=== PATIENT | female | born 1930 | race African-American/Black ===

== ENCOUNTER 2017-01-14 23:35 | Inpatient (IN) | payer MEDICARE, OTHER ==
[~2017-01-14] VITALS: Ht 170.2 cm; Wt 68.9 kg
[2017-01-15] VITALS (11 sets, daily range): BP systolic 127–158; BP diastolic 68–94
[2017-01-15 00:39] LABS: KETONES,URINE 1+ (NEGATIVE); LEUKOCYTE ESTERASE ,URINE 3+ (NEGATIVE); NITRITE,URINE NEGATIVE (NEGATIVE); PH,URINE 5 (4.5-8.0); PROTEIN,URINE 3+ (NEGATIVE); UROBILINOGEN,URINE 4 MG/DL (0.0-1.0)
[2017-01-15 00:49] LABS: APPEARANCE,URINE SLIGHTLY CLOUDY
[2017-01-15 00:51] LABS: AMORPHOUS SEDIMENT,UR MODERATE /LPF; BACTERIA,URINE MODERATE /HPF; HYALINE CASTS, URINE 0-2 /LPF; SQUAMOUS EPITHELIAL CELL,UR MANY /LPF (NONE/OCC); WBC,URINE 20-30 /HPF (0 - 2)
[2017-01-15 01:00] LABS: MEAN CORPUSCULAR HEMOGLOBIN 28.8 PG (27.0-31.0); MEAN CORPUSCULAR HGB CONC 31.6 G/DL (32.0-36.0); MEAN CORPUSCULAR VOLUME 91 FL (80-99); MEAN PLATELET VOLUME 7.5 FL (6.5-10.1); PLATELET COUNT 247 K/UL (150-450); RED BLOOD COUNT 5.36 M/UL (4.20-5.40); RED CELL DISTRIBUTION WIDTH 13.6 % (11.6-14.8)
[2017-01-15] MEDS ORDERED: cefTRIAXone 1 GM in NS 55 ML IVPB ONE (01:00)
[2017-01-15 01:19] LABS: ALANINE AMINOTRANSFERASE 17 U/L (3-33); ALBUMIN/GLOBULIN RATIO 0.9 (1.0-2.7); ANION GAP 16 (5-15); ASPARTATE AMINO TRANSFERASE 28 U/L (5-40); CALCIUM 9.6 mg/dL (8.6-10.2); CARBON DIOXIDE 26 mEQ/L (20-30); CHLORIDE 100 mEQ/L (98-107); CREATININE 1.1 mg/dL (0.5-0.9); HEMOLYSIS 1; LIPASE 16 U/L (< 60); POTASSIUM 4.4 mEQ/L (3.4-4.9); SODIUM 142 mEQ/L (135-145)
--- NOTE | 2017-01-15 01:55 | Emergency Room Report ---
History of Present Illness General Chief Complaint: Abdominal Pain Source: Patient, Medical Record Present Illness HPI Is an 86-year-old female with history diabetes. She presents with chief complaint of lower abdominal pain for last 4 days. No fever or chills. Took Motrin without much relief. Denies any dysuria frequency. No nausea or vomiting or diarrhea. No fever. Pain is 6/10. Crampy in nature Allergies: Coded Allergies: No Known Allergies (Unverified , 01/15/17) Patient History Past Medical History: see triage record, old chart reviewed, DM Past Surgical History: , other Pertinent Family History: none Social History: Denies: smoking Last Menstrual Period: post Now: No : 0 Para: 0 Immunizations: other Reviewed Nursing Documentation: PMH: Agreed, PSxH: Agreed Nursing Documentation-PMH Hx Hypertension: Yes Hx Diabetes: Yes Review of Systems Eye: Denies: blurred vision, eye pain ENT: Denies: ear pain, nose congestion, throat swelling Respiratory: Denies: cough, shortness of breath Cardiovascular: Denies: chest pain, palpitations Gastrointestinal: Reports: abdominal pain, Denies: diarrhea, nausea, vomiting Musculoskeletal: Denies: back pain, joint pain Skin: Denies: rash Neurological: Denies: headache, numbness Endocrine: Denies: increased thirst, increased urine Hematologic/Lymphatic: Denies: easy bruising All Other Systems: negative except mentioned in HPI Physical Exam Vital Signs Date Time Temp Pulse Resp B/P Pulse Ox O2 Delivery O2 Flow Rate FiO2 01/14/17 23:40 97.7 89 18 166/93 97 Room Air vitals with hypertension Sp02 EP Interpretation: reviewed, normal General Appearance: well appearing, no apparent distress, alert Head: normocephalic, atraumatic Eyes: bilateral eye EOMI, bilateral eye PERRL ENT: hearing grossly normal, normal pharynx Neck: full range of motion, supple, no meningismus Respiratory: chest non-tender, lungs clear, normal breath sounds Cardiovascular #1: regular rate, rhythm, no murmur Gastrointestinal: normal bowel sounds, no mass, no organomegaly, no bruit, non- distended, tenderness - Diffuse in lower quadrants Musculoskeletal: back normal, gait/station normal, normal range of motion Neurologic: alert, oriented x3 Psychiatric: mood/affect normal Skin: warm/dry Procedures Critical Care Time Critical Care Time Critical care is mandated in this patient who presented with abdominal pain and bowel perforation. Patient require my urgent intervention to attenuate the risks of metabolic collapse which may lead to cardiovascular collapse and . Critical care time is 35 minutes excluding any reportable procedure. Critical care time included evaluation, multiple reevaluation, looking at old charts, interpreting laboratory and diagnostic data, discussing case with patient and family and consultants, and charting. Medical Decision Making Diagnostic Impression: Primary Impression: Small bowel perforation Additional Impressions: UTI (urinary tract infection) Qualified Codes: N30.00 - Acute cystitis without hematuria Hyperglycemia due to type 1 diabetes mellitus Proteinuria Qualified Codes: R80.9 - Proteinuria, unspecified ER Course Patient present with abdominal pain for 4 days. Labs showed a mild leukocytosis with a white count of 12,000. Urine showed infection. Her CT scan showed a small perforation. Most likely secondary to perforation or small bowel. Patient received antibiotics. Kept NPO. IV fluid given. I discussed the case with Dr. Bernardo who will admit. Dr. Reagan group paged for surgical consultation. because of the perforated bowel, patient is unstable for transfer. Lab Results Impression labs unremarkable Rhythm Strip Diag. Results Rhythm Strip Time: 03:50 EP Interpretation: yes Rate: 94 Rhythm: NSR CT/MRI/US Diagnostic Results CT/MRI/US Diagnostic Results : Imaging Test Ordered: CT abdomen and pelvis Impression Read by radiologist. Free air. 3.2 x 3.9 cm collection of free air with fluid and gas in the pelvis on the left adjacent to multiple small bowel loops. Last Vital Signs Date Time Temp Pulse Resp B/P Pulse Ox O2 Delivery O2 Flow Rate FiO2 01/15/17 01:42 80 14 131/64 95 Room Air 01/15/17 00:15 97.7 Status: improved Disposition: ADMITTED INPATIENT Condition: Serious Referrals: NON PHYSICIAN (PCP) KATARINA FRAUSTO M.D. Jan 15, 2017 01:55
[2017-01-15] MEDS ORDERED: Piperacillin/Tazobactam 3.375 GM in NS 110 ML IVPB ONE (03:45)
[2017-01-15] MEDS ORDERED: Zosyn 3.375gm inj ONE (03:49)
[2017-01-15] MEDS ORDERED: Potassium Chloride 10 MEQ in NS 1000ml 1,000 ML IV SCH (04:00)
[2017-01-15] MEDS ORDERED: AMLODIPINE-BEN1 EACH ORAL (04:18)
[2017-01-15] MEDS ORDERED: REPAGLINIDE1 MG PO (04:18)
[2017-01-15] MEDS ORDERED: LOSARTAN POTASS50 MG ORAL (04:18)
[2017-01-15] MEDS ORDERED: ATORVASTATIN CA40 MG ORAL (04:18)
[2017-01-15] MEDS ORDERED: Morphine Sulfate 4mg/ml Inj IVP PRN (06:45)
--- NOTE | 2017-01-15 09:15 | Diagnostic Imaging Report ---
Indications: Abdominal pain Technique: Continuous helical CT imaging of the abdomen and pelvis was performed with automatic exposure control following administration of nonionic IV contrast only, on a Siemens sensation [address] scanner. Axial and coronal images were reconstructed at 5 mm slice thickness. No oral contrast was administered per requesting physician's order, despite no contraindications listed. CTDI volume(s): 18 mGy Total DLP: 188 mGy-cm Findings: Comparison: None Free air and fluid are present in the peritoneal cavity in mesentery. 4.5 cm loculated gas and fluid collection is present in the left lower quadrant mesentery. No retroperitoneal free air is present. This resides adjacent to both multiple variably dilated small bowel loops and the sigmoid colon. The latter demonstrates multiple diverticula. Associated mural thickening not excludable. Multiple loops of small bowel in lower abdomen and pelvis are dilated with air-fluid levels, without obvious discrete transition point. Appendix and remainder of colon unremarkable. Small hiatal hernia is present. Stomach and duodenum otherwise unremarkable. Circumscribed low-attenuation foci of varying sizes are present in the liver in both cortices. The larger appear to represent cysts. Smaller cannot be adequately characterized other than they are similar in appearance. Prominent arterial mural calcifications are present. Flow-limiting stenoses involving either or both renal arteries excludable. Broad mouth umbilical hernia contains only fat and a small amount of free air. Uterus absent. Neither ovary identified. Remainder visualized abdominopelvic anatomy demonstrates no other obvious acute abnormality. Irregular pleural-based linear and patchy opacities are present in both lung bases. Multilevel disc space narrowing with marginal osteophyte formation, vacuum phenomenon, facet hypertrophy and sclerosis throughout lumbar, lower thoracic spine. IMPRESSION: Findings compatible with acute/recent perforation of hollow viscus. Precise site indeterminate, though may have arisen from either or a sigmoid colon diverticulum or small bowel in the left lower quadrant. Associated 4.5 cm loculated gas and fluid collection in left lower quadrant may represent abscess. Small bowel dilation--favor ileus over obstruction Hepatic and bilateral renal cortical low-attenuation foci, most likely not definitely all cysts Arteriosclerosis Previous hysterectomy Pulmonary bibasal subsegmental atelectasis versus scarring. Superimposed patchy opacities may be represent atelectasis, edema, inflammation, or chronic lung disease Degenerative spondylosis Umbilical hernia This correlates with [facility] preliminary report.
--- NOTE | 2017-01-15 10:17 | Consultation ---
History of Present Illness General Date patient seen: Jan 15, 2017 Chief Complaint: Abdominal Pain Present Illness HPI 86 year old female with past medical history as noted below presented to the ED complaining of worsening abdominal pain. As per patient, she has been having intermittent vague abdominal pain for 2 months now. Two weeks ago pain began to worsen and 3 days ago became acutely worse. Pain described as cramping lower abdominal pain that is 6-8/10. Denies nausea or emesis. No radiation of pain. No fever or chills. Decided to finally come in last night as pain did not improve on its own. In ED had CT scan which demonstrated air and fluid collection in left lower abdomen consistent with intraabdominal abscess likely from perforated viscus (likely sigmoid). Surgery called to evaluate. Allergies: Coded Allergies: No Known Allergies (Unverified , 01/15/17) Medication History Scheduled Amlodipine Besylate/Benazepril* (Amlodipine-Benazepril 10-20 Mg*), 1 CAP ORAL DAILY, (Reported) Atorvastatin Calcium* (Atorvastatin Calcium*), 40 MG ORAL BEDTIME, (Reported) Losartan Potassium* (Losartan Potassium*), 50 MG ORAL DAILY, (Reported) Repaglinide (Repaglinide), 1 MG PO TID, (Reported) Patient History History Provided By: Patient Healthcare decision maker Resuscitation status Full Code Advanced Directive on File Past Medical/Surgical History Past Medical/Surgical History: (1) Proteinuria (2) UTI (urinary tract infection) (3) Hyperglycemia due to type 1 diabetes mellitus (4) Small bowel perforation Review of Systems All Other Systems: negative except mentioned in HPI Physical Exam General Appearance: no apparent distress, alert Lines, tubes and drains: peripheral HEENT: mucous membranes moist, PERRL Neck: normal inspection Respiratory/Chest: normal breath sounds, no respiratory distress, no accessory muscle use Cardiovascular/Chest: normal peripheral pulses, normal rate Abdomen: other - soft, non distended, tender on palpation with voluntary guarding. no rebound. no focal peritonitis. Neurologic: alert, oriented x 3, responsive Last 24 Hour Vital Signs Date Time Temp Pulse Resp B/P Pulse Ox O2 Delivery O2 Flow Rate FiO2 01/15/17 08:21 98.7 86 18 152/71 96 Room Air 01/15/17 07:40 97.6 85 15 154/91 98 Room Air 01/15/17 07:03 97.6 85 15 154/91 98 Room Air 01/15/17 06:53 97.6 89 15 154/91 98 Room Air 01/15/17 05:49 97.7 87 16 158/94 97 Room Air 01/15/17 03:30 97.6 60 12 158/79 98 Room Air 01/15/17 01:30 97.6 79 12 130/68 98 Room Air 01/15/17 00:15 97.7 16 132/75 99 Room Air 01/14/17 23:40 97.7 89 18 166/93 97 Room Air Intake and Output 01/14/17 01/15/17 19:00 07:00 Intake Total 55 ml Balance 55 ml Intake IV Total 55 ml # Voids 1 Laboratory Tests Test 01/14/17 23:50 01/15/17 00:15 Urine Color Yellow Urine Appearance Slightly cloudy Urine pH 5 (4.5-8.0) Urine Specific [place] 1.025 (1.005-1.035) Urine Protein 3+ (NEGATIVE) H Urine Glucose (UA) Negative (NEGATIVE) Urine Ketones 1+ (NEGATIVE) H Urine Occult Blood 3+ (NEGATIVE) H Urine Nitrite Negative (NEGATIVE) Urine Bilirubin Negative (NEGATIVE) Urine Urobilinogen 4 MG/DL (0.0-1.0) H Urine Leukocyte Esterase 3+ (NEGATIVE) H Urine RBC 2-4 /HPF (0 - 2) H Urine WBC 20-30 /HPF (0 - 2) H Urine Squamous Epithelial Cells Many /LPF (NONE/OCC) H Urine Amorphous Sediment Moderate /LPF (NONE) H Urine Bacteria Moderate /HPF (NONE) H Urine Hyaline Casts 0-2 /LPF (NONE) H Urine Coarse Granular Casts 2-4 /LPF (NONE) H White Blood Count 12.0 K/UL (4.8-10.8) H Red Blood Count 5.36 M/UL (4.20-5.40) Hemoglobin 15.5 G/DL (12.0-16.0) Hematocrit 49.0 % (37.0-47.0) H Mean Corpuscular Volume 91 FL (80-99) Mean Corpuscular Hemoglobin 28.8 PG (27.0-31.0) Mean Corpuscular Hemoglobin Concent 31.6 G/DL (32.0-36.0) L Red Cell Distribution Width 13.6 % (11.6-14.8) Platelet Count 247 K/UL (150-450) Mean Platelet Volume 7.5 FL (6.5-10.1) Neutrophils (%) (Auto) % (45.0-75.0) Lymphocytes (%) (Auto) % (20.0-45.0) Monocytes (%) (Auto) % (1.0-10.0) Eosinophils (%) (Auto) % (0.0-3.0) Basophils (%) (Auto) % (0.0-2.0) Prothrombin Time 10.0 SEC (9.30-11.50) Prothromb Time International Ratio 1.0 (0.9-1.1) Activated Partial Thromboplast Time 29 SEC (23-33) Sodium Level 142 mEQ/L (135-145) Potassium Level 4.4 mEQ/L (3.4-4.9) Chloride Level 100 mEQ/L (98-107) Carbon Dioxide Level 26 mEQ/L (20-30) Anion Gap 16 (5-15) H Blood Urea Nitrogen 27 mg/dL (7-23) H Creatinine 1.1 mg/dL (0.5-0.9) H Estimat Glomerular Filtration Rate mL/min (>60) Glucose Level 256 mg/dL (74-106) H Calcium Level 9.6 mg/dL (8.6-10.2) Total Bilirubin 0.9 mg/dL (0.0-1.2) Aspartate Amino Transf (AST/SGOT) 28 U/L (5-40) Alanine Aminotransferase (ALT/SGPT) 17 U/L (3-33) Alkaline Phosphatase 94 U/L (35-104) Total Protein 8.0 g/dL (6.6-8.7) Albumin 3.8 g/dL (3.5-5.2) Globulin 4.2 g/dL Albumin/Globulin Ratio 0.9 (1.0-2.7) L Lipase 16 U/L (< 60) Height (Feet): 5 Height (Inches): 7.00 Weight (Pounds): 152 Medications Current Medications Medications (Trade) Dose Ordered Sig/Tosin Route PRN Reason Start Time Stop Time Status Last Admin Dose Admin Ondansetron HCl (Zofran) 4 mg Q6H PRN IVP Nausea & Vomiting 01/15/17 04:15 02/14/17 04:14 Sodium Chloride (Sodium Chloride 1000ml bag) 1,000 ml @ 125 mls/hr Q8H IV 01/15/17 04:15 02/14/17 04:14 Assessment/Plan Status: stable Assessment/Plan 86 year old female with likely perforated sigmoid diverticulitis as consistent with history and CT findings. Afebrile, HD stable, leukocytosis, exam as above. Patient is currently stable. Will discuss possible radiological drainage of intra abdominal abscess. IV Abx NPO If does not improve with above, will likely require exploration will follow Kiet Eddy Jan 15, 2017 10:17
[2017-01-15] MEDS ORDERED: Morphine Sulfate 2mg/ml Inj IVP PRN (12:00)
--- NOTE | 2017-01-15 12:05 | History & Physical ---
History and Physical History & Physicial dict sigmoid perforation w abscess DM HTN HPLD abx drainage SSI IVF RICHIE PASCUAL Jan 15, 2017 12:05
[2017-01-15] MEDS ORDERED: Lidocaine 1% Plain 30 ml INJ PRN (13:30)
[2017-01-15] MEDS: Piperacillin/Tazobactam 3.375 GM in D5W 110 ML IVPB SCH (15:03)
--- NOTE | 2017-01-15 15:16 | Diagnostic Imaging Report ---
Indications: Abdominal pain, perforated sigmoid colon diverticulitis with left lower quadrant abscess formation Technique: Procedure, indications, risks, alternatives were explained to the patient, who understands and gives written consent to proceed. With the patient supine position, continuous helical CT imaging of the pelvis was performed with automatic exposure control on a Siemens Sensation Cardiac [address] scanner. Axial localizing images reconstructed at 3 mm slice thickness. Left lower quadrant anterior abdominal wall skin overlying abscess marked, sterilely prepped and draped in usual fashion. Skin, subcutaneous and deep soft tissues to peripheral margin of abscess infiltrated extensively with 1% lidocaine and sodium bicarbonate. A small dermatotomy made, through which an 8.5 Danish locking pigtail drainage catheter was advanced via trocar technique into the abscess. Trocar removed. Pigtail locked. Abscess maximally aspirated through catheter. Catheter secured the skin with adhesive dressing and attached to gravity drainage bag. Followup CT imaging performed. Patient tolerated procedure well without immediate complications and was returned to her room in stable condition. Aspirate sent to laboratory for culture and sensitivity. CTDI volume(s): 17x4, 18x3 mGy Total DLP: 1358 mGy-cm Findings: Comparison: CT abdomen pelvis 01/15/2017 at 0033 Final imaging demonstrates central aspect of the drainage catheter coiled within the region of previous abscess. Aspiration yields 25 cc of malodorous pus. Abscess cavity resolved post aspiration. IMPRESSION: CT-guided percutaneous drainage catheter placement into and aspiration of left lower quadrant diverticular abscess, culture results pending
--- NOTE | 2017-01-15 16:00 | History and Physical Report ---
DATE OF ADMISSION: 01/15/2017 CHIEF COMPLAINT: The patient is an 86-year-old woman, who came to the emergency department because of abdominal pain. HISTORY OF PRESENT ILLNESS: The patient has had abdominal pain for several weeks. It became worse in the last few days. She came to the emergency department. She complains of some nausea and poor appetite, but no vomiting or diarrhea. She has no hematemesis or melena. She had no high fever or chills. She was evaluated and found to have free air in the left lower quadrant consistent with perforated viscus. Admission was arranged. PAST MEDICAL HISTORY: Hypertension, diabetes, and hyperlipidemia. She had a hysterectomy in the past. She has no history of cancer. She does not smoke or drink and does not use drugs. She has no other major health problems. REVIEW OF SYSTEMS: Otherwise unremarkable. ALLERGIES: None. MEDICATIONS: Atorvastatin, amlodipine, losartan, and repaglinide. PHYSICAL EXAMINATION: GENERAL: The patient is alert and responds appropriately. She is well developed and well nourished. VITAL SIGNS: Stable. The blood pressure has been somewhat elevated. There is no high fever. HEENT: Head is normocephalic. NECK: No jugular venous distention. CHEST: Clear. CARDIAC: Rhythm is regular. ABDOMEN: Soft. There is some tenderness diffusely. There is no rebound. Bowel sounds are hypoactive. There are no peritoneal signs. EXTREMITIES: No clubbing, cyanosis, or edema. LABORATORY AND DIAGNOSTIC DATA: Laboratory studies and imaging are reviewed. IMPRESSION: 1. Perforated viscus, probably sigmoid colon. 2. Diabetes. 3. Hypertension. 4. Hyperlipidemia. PLAN: The patient will be given intravenous fluids, antibiotics, and pain medication. Surgery has seen the patient, recommended conservative management with percutaneous drainage. She may require surgical intervention. John Bernardo M.D. DR: ANA JOB#: [id number] CC: Patricia Haji M.D.; Fax#: [phone] Bernardo M.D. ; Fax#: [phone]
[2017-01-15] MEDS: NS w/KCl 20mEq 1,000 ML IV SCH (16:28)
[2017-01-15] MEDS: NovoLOG Insulin Flexpen SUBQ SCH ×2 (16:30→20:48)
[2017-01-16] VITALS (7 sets, daily range): BP systolic 121–135; BP diastolic 70–79
[2017-01-16] MEDS: NS w/KCl 20mEq 1,000 ML IV SCH ×2 (00:30→08:15)
[2017-01-16] MEDS: Piperacillin/Tazobactam 3.375 GM in D5W 110 ML IVPB SCH ×2 (03:01→14:12)
[2017-01-16 05:45] LABS: BASOPHILS % (AUTO) 0.7 % (0.0-2.0); EOSINOPHILS % (AUTO) 0.2 % (0.0-3.0); LYMPHOCYTES % (AUTO) 22.6 % (20.0-45.0); MEAN CORPUSCULAR HEMOGLOBIN 28.3 PG (27.0-31.0); MEAN CORPUSCULAR HGB CONC 30.8 G/DL (32.0-36.0); MEAN CORPUSCULAR VOLUME 92 FL (80-99); MEAN PLATELET VOLUME 6.4 FL (6.5-10.1); MONOCYTES % (AUTO) 14.6 % (1.0-10.0); NEUTROPHILS % (AUTO) 61.9 % (45.0-75.0); PLATELET COUNT 245 K/UL (150-450); RED BLOOD COUNT 4.85 M/UL (4.20-5.40); RED CELL DISTRIBUTION WIDTH 13.8 % (11.6-14.8); WHITE BLOOD COUNT 5.2 K/UL (4.8-10.8)
[2017-01-16 06:14] LABS: ALANINE AMINOTRANSFERASE 17 U/L (3-33); ALBUMIN/GLOBULIN RATIO 0.8 (1.0-2.7); ANION GAP 14 (5-15); ASPARTATE AMINO TRANSFERASE 22 U/L (5-40); CALCIUM 8.7 mg/dL (8.6-10.2); CARBON DIOXIDE 24 mEQ/L (20-30); CHLORIDE 109 mEQ/L (98-107); CREATININE 0.8 mg/dL (0.5-0.9); HEMOLYSIS 5; SODIUM 147 mEQ/L (135-145); TOTAL PROTEIN 6.6 g/dL (6.6-8.7)
[2017-01-16] MEDS: NovoLOG Insulin Flexpen SUBQ SCH ×4 (06:30→21:00)
[2017-01-16 06:42] LABS: HEMOGLOBIN A1C 6.1 % (< 6.0)
[2017-01-16 08:12] LABS: CHOLESTEROL 140 mg/dL (< 200); CHOLESTEROL/HDL RATIO 2.4 (3.3-4.4); LDL CHOLESTEROL (CALC.) 66 mg/dL (60-99)
--- NOTE | 2017-01-16 12:48 | General Progress Note ---
Assessment/Plan Assessment/Plan 1. Perforated viscus, probably sigmoid colon. 2. Diabetes. 3. Hypertension. 4. Hyperlipidemia. IR drained 25 cc pus drain in LLQ no fevers c/s pending cont NPO, abx adjust IVF for high Na Subjective Constitutional: Denies: fever Gastrointestinal/Abdominal: Denies: abdominal pain Allergies: Coded Allergies: No Known Allergies (Unverified , 01/15/17) Objective Last 24 Hour Vital Signs Date Time Temp Pulse Resp B/P Pulse Ox O2 Delivery O2 Flow Rate FiO2 01/16/17 12:17 97.5 61 20 132/79 95 Room Air 01/16/17 08:04 97.7 61 20 133/76 96 Room Air 01/16/17 04:00 98.7 64 18 121/72 93 Room Air 01/16/17 00:00 98.9 64 18 130/73 96 Room Air 01/15/17 20:00 97.6 73 18 137/80 96 Room Air 01/15/17 16:00 97.9 80 18 140/71 96 Room Air 01/15/17 15:03 146/94 Intake and Output 01/15/17 01/16/17 19:00 07:00 Intake Total 125 ml 1957.5 ml Output Total 0 ml Balance 125 ml 1957.5 ml Intake IV Total 125 ml 1957.5 ml Output Other 0 ml # Voids 2 # Bowel Movements 1 Laboratory Tests 01/16/17 05:00: White Blood Count 5.2#, Red Blood Count 4.85, Hemoglobin 13.7, Hematocrit 44.6, Mean Corpuscular Volume 92, Mean Corpuscular Hemoglobin 28.3, Mean Corpuscular Hemoglobin Concent 30.8L, Red Cell Distribution Width 13.8, Platelet Count 245, Mean Platelet Volume 6.4L, Neutrophils (%) (Auto) 61.9, Lymphocytes (%) (Auto) 22.6, Monocytes (%) (Auto) 14.6H, Eosinophils (%) (Auto) 0.2, Basophils (%) ( Auto) 0.7, Sodium Level 147H, Potassium Level 4.0, Chloride Level 109H, Carbon Dioxide Level 24, Anion Gap 14, Blood Urea Nitrogen 23, Creatinine 0.8, Estimat Glomerular Filtration Rate , Glucose Level 106#, Hemoglobin A1c 6.1H, Calcium Level 8.7, Total Bilirubin 0.9, Aspartate Amino Transf (AST/SGOT) 22, Alanine Aminotransferase (ALT/SGPT) 17, Alkaline Phosphatase 69, Total Protein 6.6, Albumin 3.1L, Globulin 3.5, Albumin/Globulin Ratio 0.8L, Triglycerides Level 81 , Cholesterol Level 140, LDL Cholesterol 66, HDL Cholesterol 58, Cholesterol/ HDL Ratio 2.4L Height (Feet): 5 Height (Inches): 7.00 Weight (Pounds): 152 General Appearance: alert Neck: supple Cardiovascular: normal rate Respiratory/Chest: lungs clear Abdomen: tender, other - drain LLQ RICHIE PASCUAL Jan 16, 2017 12:48
[2017-01-16] MEDS ORDERED: NS w/KCl 20mEq 1,000 ML IV SCH (13:30)
[2017-01-16] MEDS: D5 1/2NS w/KCl 20mEq 1,000 ML IV SCH (14:12)
--- NOTE | 2017-01-16 16:33 | Cardiology Report ---
APPROVED REPORT EKG Measurement Heart [id number] CT [id number] [id number] Normal sinus rhythm Normal ECG
--- NOTE | 2017-01-16 18:04 | General Progress Note ---
Progress Note Progress Note Afebrile, much less pain, no N/V..No BM yet, minimal flatus. Scanty drainage, flushed line plugged with old pus and a few ccs aspirated. Abdomen:soft, minimal LLQ tenderness, no mass, WBC: 5,200 Hg 13.7 Hct 44.6 Lytes OK. C&S: Gm stai: G+ and Gm - cocci and rods, Impression: S/P percutaneous drainage of sigmoid diverticular abscess. Pt non-toxic Plan: Continue drainage, bowel rest, begin liquids tomorrow if all EDILMA VILLEDA Jan 16, 2017 18:04
[2017-01-17] MEDS: D5 1/2NS w/KCl 20mEq 1,000 ML IV SCH ×3 (00:17→20:00)
[2017-01-17] MEDS: Piperacillin/Tazobactam 3.375 GM in D5W 110 ML IVPB SCH ×2 (03:21→15:44)
[2017-01-17 03:48] VITALS: BP 129/63
[2017-01-17] MEDS: NovoLOG Insulin Flexpen SUBQ SCH ×4 (06:30→21:00)
[2017-01-17 07:00] LABS: BASOPHILS % (AUTO) 2.6 % (0.0-2.0); EOSINOPHILS % (AUTO) 0.9 % (0.0-3.0); LYMPHOCYTES % (AUTO) 23.2 % (20.0-45.0); MEAN CORPUSCULAR HEMOGLOBIN 28.9 PG (27.0-31.0); MEAN CORPUSCULAR HGB CONC 32.1 G/DL (32.0-36.0); MEAN CORPUSCULAR VOLUME 90 FL (80-99); MEAN PLATELET VOLUME 6.6 FL (6.5-10.1); MONOCYTES % (AUTO) 12.3 % (1.0-10.0); PLATELET COUNT 255 K/UL (150-450); RED BLOOD COUNT 4.61 M/UL (4.20-5.40); RED CELL DISTRIBUTION WIDTH 13.2 % (11.6-14.8); WHITE BLOOD COUNT 6.6 K/UL (4.8-10.8)
[2017-01-17 08:00] VITALS: BP 142/74
--- NOTE | 2017-01-17 11:38 | General Surgery Progress Note ---
General Surgery-Progress Note Subjective Symptoms: improved, passing flatus Additional Comments no acute events. pain improved. no n/v/f/c. drain functional Objective Last 24 Hour Vital Signs Date Time Temp Pulse Resp B/P Pulse Ox O2 Delivery O2 Flow Rate FiO2 01/17/17 08:00 98.2 51 19 142/74 98 Room Air 01/17/17 04:30 52 01/17/17 03:48 97.3 47 18 129/63 96 Room Air 01/16/17 23:54 97.3 49 18 133/72 100 Room Air 01/16/17 20:00 97.7 54 18 135/71 100 Room Air 01/16/17 15:58 97.7 60 20 132/70 97 Room Air 01/16/17 12:17 97.5 61 20 132/79 95 Room Air I&O Intake and Output 01/16/17 01/17/17 19:00 07:00 Intake Total 710.0 ml 1227.5 ml Output Total 2602 ml 250 ml Balance -1892.0 ml 977.5 ml Intake IV Total 710.0 ml 1227.5 ml Output Urine Total 2600 ml 240 ml Other 2 ml 10 ml # Voids 3 1 Wound: clean, dry Drains: hemovac - minimal output Cardiovascular: RSR Respiratory: clear Abdomen: soft, flat, non-tender, present bowel sounds Extremities: no tenderness Laboratory Tests Test 01/17/17 04:55 White Blood Count 6.6 K/UL (4.8-10.8) Red Blood Count 4.61 M/UL (4.20-5.40) Hemoglobin 13.3 G/DL (12.0-16.0) Hematocrit 41.6 % (37.0-47.0) Mean Corpuscular Volume 90 FL (80-99) Mean Corpuscular Hemoglobin 28.9 PG (27.0-31.0) Mean Corpuscular Hemoglobin Concent 32.1 G/DL (32.0-36.0) Red Cell Distribution Width 13.2 % (11.6-14.8) Platelet Count 255 K/UL (150-450) Mean Platelet Volume 6.6 FL (6.5-10.1) Neutrophils (%) (Auto) 61.0 % (45.0-75.0) Lymphocytes (%) (Auto) 23.2 % (20.0-45.0) Monocytes (%) (Auto) 12.3 % (1.0-10.0) H Eosinophils (%) (Auto) 0.9 % (0.0-3.0) Basophils (%) (Auto) 2.6 % (0.0-2.0) H Plan Problems: (1) Perforated diverticulum of large intestine Assessment & Plan: 86F likely perforated sigmoid diverticulitis with pericolonic abscess s/p IR drainage. doing much better. Afebrile, HD stable, exam improved, labs improved. Fortunately seems to have improved with drainage and may not need surgery during this episode. Can start clear liquid diet today --> if worsening abdominal pain make NPO again Ambulate and OOB Drain care and management will follow Kiet Eddy Jan 17, 2017 11:38
[2017-01-17 11:48] VITALS: BP 130/67
[2017-01-17 16:11] VITALS: BP 138/83
--- NOTE | 2017-01-17 17:10 | General Progress Note ---
Assessment/Plan Assessment/Plan 1. Perforated sigmoid diverticulitis with pericolonic abscess s/p IR drainage. 2. Diabetes. 3. Hypertension. 4. Hyperlipidemia. drained minimal output no fevers c/s pending clears, abx monitor labs Subjective Constitutional: Denies: fever Gastrointestinal/Abdominal: Denies: abdominal pain, diarrhea Allergies: Coded Allergies: No Known Allergies (Unverified , 01/15/17) Objective Last 24 Hour Vital Signs Date Time Temp Pulse Resp B/P Pulse Ox O2 Delivery O2 Flow Rate FiO2 01/17/17 16:11 98.1 61 20 138/83 95 Room Air 01/17/17 11:48 97.6 50 20 130/67 98 Room Air 01/17/17 08:00 98.2 51 19 142/74 98 Room Air 01/17/17 04:30 52 01/17/17 03:48 97.3 47 18 129/63 96 Room Air 01/16/17 23:54 97.3 49 18 133/72 100 Room Air 01/16/17 20:00 97.7 54 18 135/71 100 Room Air Intake and Output 01/16/17 01/17/17 19:00 07:00 Intake Total 710.0 ml 1227.5 ml Output Total 2602 ml 250 ml Balance -1892.0 ml 977.5 ml IV Total 710.0 ml 1227.5 ml Output Urine Total 2600 ml 240 ml Other 2 ml 10 ml # Voids 3 1 Laboratory Tests 01/17/17 04:55: White Blood Count 6.6, Red Blood Count 4.61, Hemoglobin 13.3, Hematocrit 41.6, Mean Corpuscular Volume 90, Mean Corpuscular Hemoglobin 28.9, Mean Corpuscular Hemoglobin Concent 32.1, Red Cell Distribution Width 13.2, Platelet Count 255, Mean Platelet Volume 6.6, Neutrophils (%) (Auto) 61.0, Lymphocytes (%) (Auto) 23.2, Monocytes (%) (Auto) 12.3H, Eosinophils (%) (Auto) 0.9, Basophils (%) ( Auto) 2.6H Height (Feet): 5 Height (Inches): 7.00 Weight (Pounds): 152 General Appearance: no apparent distress Abdomen: non tender, soft, no organomegaly, no mass, other - drain RICHIE ROESNBAUM Jan 17, 2017 17:10
[2017-01-17 20:00] VITALS: BP 130/77
[2017-01-18 00:19] VITALS: BP 120/67
[2017-01-18] MEDS: Piperacillin/Tazobactam 3.375 GM in D5W 110 ML IVPB SCH (02:36)
[2017-01-18 04:00] VITALS: BP 120/70
[2017-01-18] MEDS: D5 1/2NS w/KCl 20mEq 1,000 ML IV SCH ×2 (06:00→17:16)
[2017-01-18] MEDS: NovoLOG Insulin Flexpen SUBQ SCH ×4 (06:30→21:00)
[2017-01-18 06:34] LABS: BASOPHILS % (AUTO) 0.8 % (0.0-2.0); EOSINOPHILS % (AUTO) 0.6 % (0.0-3.0); LYMPHOCYTES % (AUTO) 18.8 % (20.0-45.0); MEAN CORPUSCULAR HEMOGLOBIN 28.6 PG (27.0-31.0); MEAN CORPUSCULAR HGB CONC 31.4 G/DL (32.0-36.0); MEAN CORPUSCULAR VOLUME 91 FL (80-99); MEAN PLATELET VOLUME 6.5 FL (6.5-10.1); MONOCYTES % (AUTO) 11.9 % (1.0-10.0); NEUTROPHILS % (AUTO) 67.8 % (45.0-75.0); PLATELET COUNT 279 K/UL (150-450); RED BLOOD COUNT 4.74 M/UL (4.20-5.40); RED CELL DISTRIBUTION WIDTH 13.3 % (11.6-14.8); WHITE BLOOD COUNT 6.8 K/UL (4.8-10.8)
[2017-01-18 07:07] LABS: ANION GAP 13 (5-15); CALCIUM 8.5 mg/dL (8.6-10.2); CARBON DIOXIDE 25 mEQ/L (20-30); CHLORIDE 102 mEQ/L (98-107); CREATININE 0.8 mg/dL (0.5-0.9); HEMOLYSIS 9; POTASSIUM 3.6 mEQ/L (3.4-4.9); SODIUM 140 mEQ/L (135-145)
[2017-01-18 08:00] VITALS: BP 123/70
[2017-01-18 12:00] VITALS: BP 130/65
--- NOTE | 2017-01-18 13:07 | General Progress Note ---
Assessment/Plan Assessment/Plan 1. Perforated sigmoid diverticulitis with pericolonic abscess s/p IR drainage. 2. Diabetes. 3. Hypertension. 4. Hyperlipidemia. drained minimal output no fevers c/s e coli, 2nd GNR; adjust abx per sensi clears, advance if OK w surgery monitor labs Subjective ROS Limited/Unobtainable: Yes Constitutional: Denies: fever Gastrointestinal/Abdominal: Denies: abdominal pain Allergies: Coded Allergies: No Known Allergies (Unverified , 01/15/17) Objective Last 24 Hour Vital Signs Date Time Temp Pulse Resp B/P Pulse Ox O2 Delivery O2 Flow Rate FiO2 01/18/17 12:00 97.8 51 18 130/65 98 Room Air 01/18/17 08:00 97.7 53 18 123/70 95 Room Air 01/18/17 04:00 97.0 52 18 120/70 97 Room Air 01/18/17 00:19 97.5 60 17 120/67 96 Room Air 01/17/17 20:00 97.2 65 18 130/77 95 Room Air 01/17/17 16:11 98.1 61 20 138/83 95 Room Air Intake and Output 01/17/17 01/18/17 19:00 07:00 Intake Total 1682.5 ml 60 ml Output Total 1250 ml 15 ml Balance 432.5 ml 45 ml Intake Oral 800 ml 60 ml IV Total 882.5 ml Output Urine Total 1250 ml Other 0 ml 15 ml # Voids 2 # Bowel Movements 2 1 Laboratory Tests 01/18/17 05:00: White Blood Count 6.8, Red Blood Count 4.74, Hemoglobin 13.6, Hematocrit 43.2, Mean Corpuscular Volume 91, Mean Corpuscular Hemoglobin 28.6, Mean Corpuscular Hemoglobin Concent 31.4L, Red Cell Distribution Width 13.3, Platelet Count 279, Mean Platelet Volume 6.5, Neutrophils (%) (Auto) 67.8, Lymphocytes (%) (Auto) 18.8L, Monocytes (%) (Auto) 11.9H, Eosinophils (%) (Auto) 0.6, Basophils (%) ( Auto) 0.8, Sodium Level 140, Potassium Level 3.6, Chloride Level 102, Carbon Dioxide Level 25, Anion Gap 13, Blood Urea Nitrogen 11, Creatinine 0.8, Estimat Glomerular Filtration Rate , Glucose Level 104, Calcium Level 8.5L Height (Feet): 5 Height (Inches): 7.00 Weight (Pounds): 152 General Appearance: no apparent distress Abdomen: non tender, soft, no organomegaly, no mass, other - drain RICHIE PASCUAL Jan 18, 2017 13:07
[2017-01-18 16:00] VITALS: BP 128/68
[2017-01-18] MEDS: cefTRIAXone 2 GM in D5W 110 ML IVPB SCH (17:17)
--- NOTE | 2017-01-18 19:18 | General Progress Note ---
Progress Note Progress Note Surgery: doing well. no issues. no n/v/f/c. labs okay. no drain output. minimal pain around drain tube insertion site. abdominal exam benign had normal BM today advance diet as tolerated can d/c on oral abx from surgical standpoint will remove drain day of discharge. Kiet Eddy Jan 18, 2017 19:18
[2017-01-18 20:00] VITALS: BP 147/76
[2017-01-19 00:05] VITALS: BP 140/77
[2017-01-19] MEDS: D5 1/2NS w/KCl 20mEq 1,000 ML IV SCH ×3 (03:20→21:54)
[2017-01-19 04:00] VITALS: BP 141/69
[2017-01-19] MEDS: NovoLOG Insulin Flexpen SUBQ SCH ×4 (06:23→21:00)
[2017-01-19 07:17] LABS: BASOPHILS % (AUTO) 0.9 % (0.0-2.0); EOSINOPHILS % (AUTO) 0.4 % (0.0-3.0); LYMPHOCYTES % (AUTO) 18.6 % (20.0-45.0); MEAN CORPUSCULAR HEMOGLOBIN 29.1 PG (27.0-31.0); MEAN CORPUSCULAR HGB CONC 31.9 G/DL (32.0-36.0); MEAN CORPUSCULAR VOLUME 91 FL (80-99); MEAN PLATELET VOLUME 6.3 FL (6.5-10.1); MONOCYTES % (AUTO) 10.4 % (1.0-10.0); NEUTROPHILS % (AUTO) 69.8 % (45.0-75.0); PLATELET COUNT 309 K/UL (150-450); RED BLOOD COUNT 4.47 M/UL (4.20-5.40); RED CELL DISTRIBUTION WIDTH 13.3 % (11.6-14.8)
[2017-01-19 07:28] LABS: ANION GAP 12 (5-15); CALCIUM 8.6 mg/dL (8.6-10.2); CARBON DIOXIDE 26 mEQ/L (20-30); CHLORIDE 102 mEQ/L (98-107); CREATININE 0.8 mg/dL (0.5-0.9); HEMOLYSIS 2; POTASSIUM 3.7 mEQ/L (3.4-4.9); SODIUM 140 mEQ/L (135-145)
[2017-01-19 07:46] VITALS: BP 137/74
--- NOTE | 2017-01-19 11:01 | Pulmonology Progress Note ---
Assessment/Plan Assessment/Plan Assessment/Plan 1. Perforated sigmoid diverticulitis with pericolonic abscess s/p IR drainage. 2. Diabetes. 3. Hypertension. 4. Hyperlipidemia. drain per surgery no fevers c/s e coli, 2nd GNR; adjust abx per sensi clears, advance if OK w surgery monitor labs Saturday Subjective Constitutional: Reports: no symptoms HEENT: Repors: no symptoms Respiratory: Reports: no symptoms Cardiovascular: Reports: no symptoms Allergies: Coded Allergies: No Known Allergies (Unverified , 01/15/17) Subjective no events noted drain in place no cp nv or bleeding tolerating po no fever getting oob on RA Objective Last 24 Hour Vital Signs Date Time Temp Pulse Resp B/P Pulse Ox O2 Delivery O2 Flow Rate FiO2 01/19/17 07:46 97.3 55 19 137/74 98 Room Air 01/19/17 04:00 98.3 56 19 141/69 97 Room Air 01/19/17 00:05 98.3 54 19 140/77 96 Room Air 01/18/17 20:00 98.4 55 18 147/76 97 Room Air 01/18/17 16:00 96.8 48 18 128/68 98 Room Air 01/18/17 12:00 97.8 51 18 130/65 98 Room Air Intake and Output 01/18/17 01/19/17 19:00 07:00 Intake Total 1300 ml 1200 ml Output Total 15 ml 15 ml Balance 1285 ml 1185 ml Intake Oral 1300 ml 200 ml IV Total 1000 ml Other 15 ml 15 ml # Voids 5 2 # Bowel Movements 1 1 General Appearance: WD/WN Respiratory/Chest: lungs clear, normal breath sounds Cardiovascular: normal rate, regularly irregular Abdomen: normal bowel sounds, tender Extremities: no cyanosis Skin: no lesions 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, no motor/sensory deficits, oriented x 3 Lymphatic: no groin adenopathy Musculoskeletal: no effusion Laboratory Tests 01/19/17 04:50: White Blood Count 6.0, Red Blood Count 4.47, Hemoglobin 13.0, Hematocrit 40.8, Mean Corpuscular Volume 91, Mean Corpuscular Hemoglobin 29.1, Mean Corpuscular Hemoglobin Concent 31.9L, Red Cell Distribution Width 13.3, Platelet Count 309, Mean Platelet Volume 6.3L, Neutrophils (%) (Auto) 69.8, Lymphocytes (%) (Auto) 18.6L, Monocytes (%) (Auto) 10.4H, Eosinophils (%) (Auto) 0.4, Basophils (%) ( Auto) 0.9, Sodium Level 140, Potassium Level 3.7, Chloride Level 102, Carbon Dioxide Level 26, Anion Gap 12, Blood Urea Nitrogen 8, Creatinine 0.8, Estimat Glomerular Filtration Rate , Glucose Level 126H, Calcium Level 8.6 Current Medications Medications (Trade) Dose Ordered Sig/Tosin Route PRN Reason Start Time Stop Time Status Last Admin Dose Admin Ceftriaxone Sodium/Dextrose (Rocephin/D5W) 110 ml @ 220 mls/hr Q24H IVPB 01/18/17 15:00 01/25/17 14:59 01/18/17 17:17 Clonidine HCl (Catapres TTS-1) 1 patch QWEEK TDERMAL 01/15/17 13:00 02/14/17 12:59 01/15/17 15:03 Dextrose STAT PRN IV Hypoglycemia 01/15/17 12:15 02/14/17 12:14 Dextrose/ Electrolytes 1,000 ml @ 100 mls/hr Q10H IV 01/16/17 14:00 02/15/17 13:59 01/19/17 03:20 Insulin Aspart (NovoLOG) BEFORE MEALS AND HS SUBQ 01/15/17 16:30 02/14/17 16:29 01/19/17 06:23 Morphine Sulfate (Morphine Sulfate) 2 mg Q3H PRN IVP Severe Pain (Pain Scale 7-10) 01/15/17 12:00 01/22/17 11:59 Ondansetron HCl (Zofran) 4 mg Q6H PRN IVP Nausea & Vomiting 01/15/17 04:15 02/14/17 04:14 IVETTE CHEN DO Jan 19, 2017 11:01
[2017-01-19 11:52] VITALS: BP 131/75
[2017-01-19] MEDS: cefTRIAXone 2 GM in D5W 110 ML IVPB SCH (14:05)
[2017-01-19 15:56] VITALS: BP 144/75
[2017-01-19] MEDS: Cefepime 2gm in D5W 110ml IVPB SCH (16:20)
[2017-01-19 20:16] VITALS: BP 125/69
[2017-01-20 00:34] VITALS: BP 130/76
[2017-01-20] MEDS: Cefepime 2gm in D5W 110ml IVPB SCH ×2 (04:11→16:08)
[2017-01-20 04:29] VITALS: BP 137/75
[2017-01-20] MEDS: NovoLOG Insulin Flexpen SUBQ SCH ×4 (06:30→21:43)
[2017-01-20 07:21] LABS: BASOPHILS % (AUTO) 0.6 % (0.0-2.0); EOSINOPHILS % (AUTO) 0.8 % (0.0-3.0); MEAN CORPUSCULAR HGB CONC 31.4 G/DL (32.0-36.0); MEAN CORPUSCULAR VOLUME 92 FL (80-99); MEAN PLATELET VOLUME 5.9 FL (6.5-10.1); MONOCYTES % (AUTO) 6.2 % (1.0-10.0); NEUTROPHILS % (AUTO) 70.4 % (45.0-75.0); PLATELET COUNT 356 K/UL (150-450); RED BLOOD COUNT 4.43 M/UL (4.20-5.40); RED CELL DISTRIBUTION WIDTH 13.4 % (11.6-14.8)
[2017-01-20 07:53] VITALS: BP 138/66
[2017-01-20] MEDS: D5 1/2NS w/KCl 20mEq 1,000 ML IV SCH (08:00)
--- NOTE | 2017-01-20 10:08 | Pulmonology Progress Note ---
Assessment/Plan Assessment/Plan Assessment/Plan 1. Perforated sigmoid diverticulitis with pericolonic abscess s/p IR drainage. 2. Diabetes. 3. Hypertension. 4. Hyperlipidemia. drain per surgery no fevers c/s e coli, 2nd GNR; adjust abx per sensi clears, advance if OK w surgery hep lock IVF monitor labs AM Subjective Constitutional: Reports: no symptoms HEENT: Repors: no symptoms Respiratory: Reports: no symptoms Cardiovascular: Reports: no symptoms Genitourinary: Reports: no symptoms Skin: Reports: no symptoms Endocrine: Reports: no symptoms Allergies: Coded Allergies: No Known Allergies (Unverified , 01/15/17) Subjective no events noted sleeping this am drain in place no cp nv or bleeding tolerating po no fever getting oob on RA Objective Last 24 Hour Vital Signs Date Time Temp Pulse Resp B/P Pulse Ox O2 Delivery O2 Flow Rate FiO2 01/20/17 07:53 98.1 49 20 138/66 98 Room Air 01/20/17 04:29 98.1 51 17 137/75 98 Room Air 01/20/17 00:34 98.5 59 18 130/76 98 Room Air 01/19/17 20:16 97.8 59 19 125/69 97 Room Air 01/19/17 15:56 98.2 53 19 144/75 100 Room Air 01/19/17 11:52 97.8 52 19 131/75 98 Room Air Intake and Output 01/19/17 01/20/17 19:00 07:00 Intake Total 2530 ml 240 ml Output Total 0 ml 600 ml Balance 2530 ml -360 ml Intake Oral 1420 ml 240 ml IV Total 1110 ml Output Urine Total 600 ml Other 0 ml # Voids 3 2 # Bowel Movements 4 General Appearance: WD/WN HEENT: anicteric Respiratory/Chest: normal breath sounds, no respiratory distress Cardiovascular: normal rate, regular rhythm Abdomen: soft, non tender, no organomegaly, no mass Extremities: no cyanosis Skin: no lesions Lymphatic: no neck adenopathy Musculoskeletal: normal muscle bulk Laboratory Tests 01/20/17 04:50: White Blood Count 7.0, Red Blood Count 4.43, Hemoglobin 12.8, Hematocrit 40.9, Mean Corpuscular Volume 92, Mean Corpuscular Hemoglobin 29.0, Mean Corpuscular Hemoglobin Concent 31.4L, Red Cell Distribution Width 13.4, Platelet Count 356, Mean Platelet Volume 5.9L, Neutrophils (%) (Auto) 70.4, Lymphocytes (%) (Auto) 22.0, Monocytes (%) (Auto) 6.2, Eosinophils (%) (Auto) 0.8, Basophils (%) (Auto ) 0.6 Current Medications Medications (Trade) Dose Ordered Sig/Tosin Route PRN Reason Start Time Stop Time Status Last Admin Dose Admin Cefepime HCl/ Dextrose (Maxipime/D5W) 110 ml @ 220 mls/hr Q12HR@0400,1600 IVPB 01/19/17 17:00 01/26/17 16:59 01/20/17 04:11 Clonidine HCl (Catapres TTS-1) 1 patch QWEEK TDERMAL 01/15/17 13:00 02/14/17 12:59 01/15/17 15:03 Dextrose STAT PRN IV Hypoglycemia 01/15/17 12:15 02/14/17 12:14 Dextrose/ Electrolytes 1,000 ml @ 100 mls/hr Q10H IV 01/16/17 14:00 02/15/17 13:59 01/19/17 21:54 Insulin Aspart (NovoLOG) BEFORE MEALS AND HS SUBQ 01/15/17 16:30 02/14/17 16:29 01/19/17 11:24 Morphine Sulfate (Morphine Sulfate) 2 mg Q3H PRN IVP Severe Pain (Pain Scale 7-10) 01/15/17 12:00 01/22/17 11:59 Ondansetron HCl (Zofran) 4 mg Q6H PRN IVP Nausea & Vomiting 01/15/17 04:15 02/14/17 04:14 IVETTE CHEN DO Jan 20, 2017 10:08
[2017-01-20 11:59] VITALS: BP 121/70
--- NOTE | 2017-01-20 12:16 | General Progress Note ---
Progress Note Progress Note Afebrile. Pt is awake,alert, has minimal abdominal pain, no N or V, tolerating diet. abdomen is soft, scant drainage from LLQ drain. CBC okay. We can probably switch her to oral antibiotics and remove drain soon. Bean Ma MD Jan 20, 2017 12:16
[2017-01-20 15:53] VITALS: BP 126/72
[2017-01-20 20:22] VITALS: BP 127/72
[2017-01-21 00:16] VITALS: BP 130/70
[2017-01-21] MEDS: Cefepime 2gm in D5W 110ml IVPB SCH (04:24)
[2017-01-21 04:30] VITALS: BP 126/74
[2017-01-21] MEDS: NovoLOG Insulin Flexpen SUBQ SCH ×2 (06:30→11:30)
[2017-01-21 07:41] LABS: BASOPHILS % (AUTO) 0.7 % (0.0-2.0); EOSINOPHILS % (AUTO) 1.1 % (0.0-3.0); LYMPHOCYTES % (AUTO) 22.4 % (20.0-45.0); MEAN CORPUSCULAR HEMOGLOBIN 30.1 PG (27.0-31.0); MEAN CORPUSCULAR HGB CONC 32.8 G/DL (32.0-36.0); MEAN CORPUSCULAR VOLUME 92 FL (80-99); MEAN PLATELET VOLUME 5.9 FL (6.5-10.1); MONOCYTES % (AUTO) 6.3 % (1.0-10.0); NEUTROPHILS % (AUTO) 69.5 % (45.0-75.0); PLATELET COUNT 380 K/UL (150-450); RED BLOOD COUNT 4.32 M/UL (4.20-5.40); RED CELL DISTRIBUTION WIDTH 13.2 % (11.6-14.8); WHITE BLOOD COUNT 6.6 K/UL (4.8-10.8)
[2017-01-21 08:00] VITALS: BP 133/62
[2017-01-21] MEDS ORDERED: Ciprofloxacin 500mg tab ORAL SCH (09:45)
[2017-01-21] MEDS: Cephalexin 500mg cap ORAL SCH ×2 (09:54→12:23)
[2017-01-21] MEDS ORDERED: CIPROFLOXACIN500 M2 ORAL (11:43)
[2017-01-21] MEDS ORDERED: KEFLEX500 M1 ORAL (11:43)
--- NOTE | 2017-01-21 11:49 | General Progress Note ---
Progress Note Progress Note Surgery: pt seen and examined. doing well. no acute events. tolerating oral diet. passing flatus and BM Abd soft, nt/nd, BS+. exam benign. drain output minimal. perforated sigmoid diverticulitis with pericolonic abscess drained by radiology. -drain removed. -oral abx -okay to d/c from surgical standpoint Kiet Eddy Jan 21, 2017 11:49
[2017-01-21 12:00] VITALS: BP 144/69
[2017-01-21] MEDS ORDERED: Tubing IV Secondary IV ONE (14:19)
[2017-01-21] MEDS ORDERED: NS 275ml ONE (14:19)
--- NOTE | 2017-01-22 10:36 | Discharge Summary ---
Discharge Summary Hospital Course Date of Admission Jan 15, 2017 at 04:02 Date of Discharge Jan 21, 2017 at 14:20 Admitting Diagnosis Small bowel perforation JERARDO Turner is a 86 year old female who was admitted on Jan 15, 2017 at 04: 02 for Small Bowel Perforation Hospital Course dc summary #[id number] Discharge Medications New Medications: Cephalexin (Cephalexin) 500 Mg Tablet 500 MG ORAL FOUR TIMES A DAY, #40 TAB Ciprofloxacin Hcl* (Ciprofloxacin Hcl*) 500 Mg Tablet 500 MG ORAL EVERY 12 HOURS, #20 TAB Continued Medications: Amlodipine Besylate/Benazepril* (Amlodipine-Benazepril 10-20 Mg*) 1 Each Capsule 1 CAP ORAL DAILY, CAP Atorvastatin Calcium* (Atorvastatin Calcium*) 40 Mg Tablet 40 MG ORAL BEDTIME, TAB Losartan Potassium* (Losartan Potassium*) 50 Mg Tablet 50 MG ORAL DAILY, TAB Repaglinide (Repaglinide) 1 Mg Tablet 1 MG PO TID, TAB Discharge Condition Upon Discharge: stable Discharge Disposition Patient was discharged to Home (01) Discharge Diagnoses: Discharge Instructions Discharge Instructions Special Instructions I have been assigned to complete a D/C Summary on this account. I was not involved in the patient management Deepthi Ernandez NP ([facility]) Jan 22, 2017 10:36
--- NOTE | 2017-01-23 05:30 | Discharge Summary 2 SIG ---
DATE OF ADMISSION: 01/15/2017 DATE OF DISCHARGE: 01/21/2017 REASON FOR ADMISSION: This is an 86-year-old female with history of diabetes and hypertension, presented with complaint of lower abdominal pain for four days. Denied fever or chills. Denied dysuria, nausea, vomiting, or diarrhea. Pain reported as a cramping 6/10 with no relief from Motrin. CT of the abdomen and pelvis done in the emergency room revealed perforated viscus and possible left lower quadrant abscess. Surgery consult was requested stat. Surgeon reviewed a CT of the abdomen and concluded that the patient likely have perforated sigmoid diverticulitis with pericolonic abscess, urgently ordered CT-guided drainage of pericolonic abscess by Interventional Radiology, which was done on the same day. A 25 mL of drainage was aspirated. Drain was left in. The patient started on empiric antibiotics and admitted for further management. ADMITTING DIAGNOSES: 1. Perforated sigmoid diverticulitis. 2. Pericolonic abscess. 3. Status post CT-guided percutaneous drainage of sigmoid diverticular abscess. 4. Diabetes mellitus. 5. Hypertension. 6. Possible urinary tract infection. Urinalysis was with evidence of possible urinary tract infection. HOSPITAL STAY: The patient admitted. The patient was NPO with bowel rest. Surgery closely followed. The patient was started on empiric antibiotics. Pain management provided. Drain was monitored for amount of drainage with scanty minimal drainage. No fever. Pain controlled. Abdominal exam was benign. The patient started to pass flatus and had a bowel movement. The patient started on clear liquid diet and was advanced as tolerated. Able to tolerate diet. Blood pressure and blood sugar was managed with current regimen and was stable. Urine culture revealed mixed Gram-positive organisms, but fluid culture was positive for E. coli and Pseudomonas. While in the hospital, the patient was on IV antibiotics, which were changed to oral prior to discharge to complete the course of antibiotics. Drain was discontinued on the day of discharge. No leukocytosis. Pain controlled. Tolerated diet. Stable vital signs. The patient was stable for discharge. DISCHARGE DIAGNOSES: 1. Perforated sigmoid diverticulitis with pericolonic abscess. 2. Status post CT-guided percutaneous drainage of sigmoid diverticular abscess. 3. Diabetes mellitus. 4. Hypertension. 5. Hyperlipidemia. DISCHARGE MEDICATIONS: See medication reconciliation list. Scripts for oral antibiotic provided to complete the course of treatment. DISCHARGE INSTRUCTION: The patient was discharged home. Follow up with primary medical doctor. John Bernardo M.D. I have been assigned to dictate discharge summary on this account and I was not involved in the patient's management. Deepthi Ernandez N.P. (vanchtein) DR: Debora JOB#: [id number] CC:
== END 2017-01-21 14:20 | disposition home or self-care (01) | DRG 392 ==
LOC: EMR 23:58 → EDBEDREQ 01-15 03:50 → 3E 01-15 04:02 → EDBEDREQ 01-15 05:53
PROC: 0W9G30Z Drainage of Peritoneal Cavity with Drainage Device, Percutaneous Approach (ICD-10-PCS; principal; 2017-01-15)
DX: K57.20 Diverticulitis of large intestine with perforation and abscess without bleeding (principal); E10.65 Type 1 diabetes mellitus with hyperglycemia; N39.0 Urinary tract infection, site not specified; I10 Essential (primary) hypertension; E78.5 Hyperlipidemia, unspecified
CPT/HCPCS: 36415; 74177; 75989; 80048; 80053; 80061; 81003; 82962; 83036; 83690; 85025; 85610; 85730; 86850; 86900; 86901; 87070; 87086; 87181; 87205; 93005; J1815